=== PATIENT | male | born 1975 | race African-American/Black ===

== ENCOUNTER 2016-07-08 16:21 | Emergency (ER) | payer SELFPAY ==
[~2016-07-08 16:21] MED LIST: predniSONE 20 MG TAB ONE
[2016-07-08] MEDS ORDERED: predniSONE 20 MG TAB ONE (17:00)
--- NOTE | 2016-07-08 18:05 | RAD ---
PORTABLE UPRIGHT FRONTAL CHEST RADIOGRAPH 07/08/16 COMPARISON: 05/13/15 HISTORY: Dyspnea. FINDINGS: There is no pneumothorax or pleural fluid and no focal consolidation or alveolar edema. Heart and me diastinal contours are grossly unremarkable. IMPRESSION: No acute findings. POS: [facility]
== END 2016-07-08 19:12 | disposition home or self-care (01) ==
LOC: MADERS 16:21
DX: J45.901 Unspecified asthma with (acute) exacerbation (principal); F32.9 Major depressive disorder, single episode, unspecified; F17.210 Nicotine dependence, cigarettes, uncomplicated
CPT/HCPCS: 71010; 94640; 94760; 94799; J7506; J7620

== ENCOUNTER 2017-01-18 15:03 | Emergency (ER) | payer SELFPAY ==
[2017-01-18] MEDS ORDERED: Ondansetron HCl/PF 4 MG/2 ML Vial ONE (15:44)
[2017-01-18] MEDS ORDERED: Sodium Chloride 0.9% 1,000 ML ONE (15:44)
--- NOTE | 2017-01-18 15:55 | RAD ---
CHEST 1 VIEW: Date: 01/18/17 HISTORY: Pain. COMPARISON: 07/08/16. FINDINGS: Single view chest demonstrates normal cardiac silhouette. Pulmonary vessels and hilum are normal. Cos tophrenic angles are clear. No consolidation or mass. No pneumothorax or osseous abnormalities. IMPRESSION: No acute cardiopulmonary process. POS: [facility]
[2017-01-18 16:45] LABS: Band 3 % (5-11); Lymphocytes 5 % (21-51); MDiff Complete? YES; Mean Corpuscular HGB CONC 33.7 g/dL (32.0-36.0); Mean Corpuscular Volume 89.2 fl (80.0-94.0); Mean Platelet Volume 7.2 fL (7.4-10.4); Monocytes 9 % (0-10); Neutrophil 83 % (42-75); PLT Morphology Comment Appears Adequate; Platelet Count 271 thou/uL (130-400); RBC Distribution Width 11.9 % (11.5-14.5); Red Blood Cell (RBC) Count 5.33 mill/uL (4.70-6.10); White Blood Cell (WBC) Count 15.6 thou/uL (4.8-10.8)
[2017-01-18 16:49] LABS: ALT (SGPT) 30 U/L (8-55); AST (SGOT) 29 U/L (5-34); Albumin 4.7 g/dL (3.5-5.0); Alkaline Phosphatase 55 U/L (40-150); Anion Gap 19 mmol/L (10-20); BUN (Urea Nitrogen) 9 mg/dL (8.9-20.6); Bilirubin, Total 0.8 mg/dL (0.2-1.2); Calc. Creatinine Clearance 0 mL/min (70-130); Calcium 9.6 mg/dL (7.8-10.44); Carbon Dioxide 20 mmol/L (22-29); Chloride 105 mmol/L (98-107); Estimated GFR-MDRD Greater than 90; Globulin 3.7 g/dL (2.4-3.5); Glucose 102 mg/dL (70-105); Lipase 14 U/L (8-78); Potassium 4.2 mmol/L (3.5-5.1); Protein, Total 8.4 g/dL (6.0-8.3); Sodium 140 mmol/L (136-145)
== END 2017-01-18 17:09 | disposition home or self-care (01) ==
LOC: MADERS 15:03
DX: R11.2 Nausea with vomiting, unspecified (principal); D72.829 Elevated white blood cell count, unspecified; J45.909 Unspecified asthma, uncomplicated; F32.9 Major depressive disorder, single episode, unspecified; F17.210 Nicotine dependence, cigarettes, uncomplicated; Z79.899 Other long term (current) drug therapy
CPT/HCPCS: 71010; 80053; 83690; 85025; 96361; 96374; J2405; J7050

== ENCOUNTER 2021-04-19 06:49 | Emergency (ER) | payer SELFPAY ==
[2021-04-19 07:57] LABS: Bilirubin Negative (Negative); Blood, Urine Trace (Negative); Clarity Clear (Clear); Glucose, Urine (Dipstick) Negative (Negative); Ketone, Urine Negative (Negative); Leukocyte Trace (Negative); Nitrite Negative (Negative); Protein, Urine (Dipstick) Negative (Neg-Trace); Urobilinogen 0.2 mg/dL (Less than 2)
[2021-04-19 08:03] LABS: RBC/HPF 0-3 HPF (0-3)
[2021-04-19 08:05] LABS: Bacteria/HPF Rare-Few HPF (None Seen); Squamous Epithelial 0-3 HPF (0-3)
[2021-04-19] MEDS ORDERED: Acetaminophen 325 MG TAB ONE (08:15)
[2021-04-19 18:48] LABS: SARS-CoV-2 PCR by NAA Not Detected (NotDetected)
== END 2021-04-19 08:45 | disposition home or self-care (01) ==
LOC: MADERS 06:49
DX: N10 Acute pyelonephritis (principal); J45.909 Unspecified asthma, uncomplicated; F17.210 Nicotine dependence, cigarettes, uncomplicated; Z20.822 Contact with and (suspected) exposure to COVID-19; Z79.899 Other long term (current) drug therapy
CPT/HCPCS: 71046; 81001; 87086; U0003; U0005

== ENCOUNTER 2021-06-24 09:35 | Outpatient (CLI) | payer SELFPAY | END 2021-06-24 09:36 | disposition home or self-care (01) | LOC: MADRAD 09:35 | PROVIDERS: ATTEND Family Medicine | DX: M54.41 Lumbago with sciatica, right side (principal) | CPT/HCPCS: 72100 ==

== ENCOUNTER 2021-10-06 23:52 | Emergency (ER) | payer BC ==
[2021-10-07] MEDS ORDERED: predniSONE 20 MG TAB ONE (00:19)
[2021-10-07] MEDS ORDERED: Albuterol 200 PUFF (6.7GM INHALER) ONE (00:19)
[2021-10-07] MEDS ORDERED: predniSONE 10 MG TAB ONE (00:19)
[2021-10-07] MEDS ORDERED: Benzonatate 100 MG CAP ONE (00:19)
== END 2021-10-07 00:33 | disposition home or self-care (01) ==
LOC: MADERS 23:52
DX: J45.909 Unspecified asthma, uncomplicated (principal); F17.210 Nicotine dependence, cigarettes, uncomplicated
CPT/HCPCS: J7512

== ENCOUNTER 2022-05-09 03:25 | Emergency (ER) | payer BC, OTHER ==
[2022-05-09] MEDS ORDERED: Ipratropium/Albuterol 3 ML NEB ONE (03:45)
[2022-05-09] MEDS ORDERED: Sodium Chloride 0.9% 1,000 ML ONE (04:06)
[2022-05-09] MEDS ORDERED: methylPREDNISolone Sod Succ/PF 125 MG/2 ML VIAL ONE (04:06)
[2022-05-09] MEDS ORDERED: Magnesium 2 GM/50 ML BAG (IN WATER) ONE (04:06)
[2022-05-09 04:15] LABS: #Basophils 0.1 thou/uL (0.0-0.2); #Eosinphils 0.6 thou/uL (0.0-0.7); #Lymphocytes 1.7 thou/uL (1.20-3.40); #Monocytes 0.7 thou/uL (0.11-0.59); #Neutrophils 5.9 thou/uL (1.40-6.50); %Eosinophils 6.8 % (0.0-10.0); %Lymphocytes 19.3 % (21.0-51.0); %Monocytes 7.4 % (0.0-10.0); %Neutrophils 65.6 % (42.0-75.0); Hemoglobin 15.2 g/dL (14.0-18.0); Mean Corpuscular HGB CONC 33.4 g/dL (32.0-36.0); Mean Corpuscular Hemoglobin 28.8 pg (27.0-31.0); Mean Corpuscular Volume 86.1 fl (78.0-98.0); Mean Platelet Volume 6.6 fL (7.4-10.4); Platelet Count 291 10x3/uL (130-400); RBC Distribution Width 11.5 % (11.5-14.5); Red Blood Cell (RBC) Count 5.29 mill/uL (4.70-6.10)
[2022-05-09 04:35] LABS: ALT (SGPT) 18 U/L (8-55); AST (SGOT) 19 U/L (5-34); Albumin 4.5 g/dL (3.5-5.0); Alkaline Phosphatase 45 U/L (40-110); Anion Gap 14 mmol/L (10-20); BUN (Urea Nitrogen) 11 mg/dL (8.9-20.6); Bilirubin, Total 0.7 mg/dL (0.2-1.2); Calc. Creatinine Clearance 0 mL/min (70-130); Calcium 9.2 mg/dL (7.8-10.44); Carbon Dioxide 22 mmol/L (22-29); Chloride 107 mmol/L (98-107); Estimated GFR 105; Globulin 3.1 g/dL (2.4-3.5); Glucose 108 mg/dL (70-105); Potassium 4.1 mmol/L (3.5-5.1); Protein, Total 7.6 g/dL (6.0-8.3); Sodium 139 mmol/L (136-145)
== END 2022-05-09 05:30 | disposition home or self-care (01) ==
LOC: MADERS 03:25
DX: J45.901 Unspecified asthma with (acute) exacerbation (principal); F17.210 Nicotine dependence, cigarettes, uncomplicated; Z79.899 Other long term (current) drug therapy
CPT/HCPCS: 71046; 80053; 85025; 96365; 96375; J2930; J3475; J7050; J7611; J7620

== ENCOUNTER 2022-09-25 11:05 | Emergency (ER) | payer OTHER | END 2022-09-25 14:20 | disposition home or self-care (01) | LOC: MADERS 11:05 | DX: J45.20 Mild intermittent asthma, uncomplicated (principal); F17.210 Nicotine dependence, cigarettes, uncomplicated | CPT/HCPCS: 99284 ==

== ENCOUNTER 2023-08-19 15:18 | Emergency (ER) | payer BC ==
[2023-08-19] MEDS ORDERED: Ondansetron PF 4 MG/2 ML Vial ONE (16:07)
[2023-08-19] MEDS ORDERED: Ketorolac Tromethamine 30 MG (1 mL) VIAL ONE (16:07)
[2023-08-19] MEDS ORDERED: Albuterol 2.5 MG (3 mL) NEB ONE (16:07)
[2023-08-19] MEDS ORDERED: Sodium Chloride 0.9% 1,000 ML ONE (16:07)
[2023-08-19 16:21] LABS: ALT (SGPT) 27 U/L (8-55); AST (SGOT) 28 U/L (5-34); Albumin 4.8 g/dL (3.5-5.0); Alkaline Phosphatase 53 U/L (40-110); Anion Gap 18 mmol/L (10-20); BUN (Urea Nitrogen) 8 mg/dL (8.9-20.6); Bilirubin, Total 0.6 mg/dL (0.2-1.2); Calc. Creatinine Clearance 0 mL/min (70-130); Calcium 9.6 mg/dL (7.8-10.44); Carbon Dioxide 19 mmol/L (22-29); Chloride 103 mmol/L (98-107); Estimated GFR 98; Globulin 3.4 g/dL (2.4-3.5); Glucose 89 mg/dL (70-105); Lipase 16 U/L (8-78); Potassium 3.8 mmol/L (3.5-5.1); Protein, Total 8.2 g/dL (6.0-8.3); Sodium 136 mmol/L (136-145)
[2023-08-19 16:25] LABS: Band 1 % (5-11); Hematocrit 51.3 % (42.0-52.0); Hemoglobin 15.5 g/dL (14.0-18.0); Lymphocytes 6 % (21-51); MDiff Complete? YES; Manual Diff?? YES; Mean Corpuscular HGB CONC 30.3 g/dL (32.0-36.0); Mean Corpuscular Hemoglobin 26.8 pg (27.0-31.0); Mean Corpuscular Volume 88.6 fl (78.0-98.0); Mean Platelet Volume 6.4 fL (7.4-10.4); Monocytes 5 % (0-10); Neutrophil 86 % (42-75); Platelet Count 265 10x3/uL (130-400); RBC Distribution Width 12.5 % (11.5-14.5); Red Blood Cell (RBC) Count 5.79 mill/uL (4.70-6.10); White Blood Cell (WBC) Count 7.1 10x3/uL (4.8-10.8)
[2023-08-19 16:26] LABS: Platelet Adequacy Comment Appears Adequate; RBC Morph Comment Within Normal Limits; Reactive Lymphocytes 2 % (0-10)
== END 2023-08-19 17:33 | disposition home or self-care (01) ==
LOC: MADERS 15:18
DX: K52.9 Noninfective gastroenteritis and colitis, unspecified (principal); F17.210 Nicotine dependence, cigarettes, uncomplicated
CPT/HCPCS: 74022; 80053; 83690; 83735; 85025; 87081; 87430; 87804; 96361; 96374; 96375; J1885; J2405; J7050; J7611